=== PATIENT | male | born 1965 | race Caucasian/White ===

== ENCOUNTER 2016-10-17 07:16 | Day surgery (SDC) | payer BC ==
[~2016-10-17 07:16] MED LIST: Lactated Ringers 1,000 ML IV SCH; Lidocaine 1%/Sod Bicarbonate in NS 8.4% 1 ML Syringe PRN; Sodium Chloride 0.9% 10 ML Syringe FLUSH PRN
[2016-10-17] MEDS ORDERED: Propofol 200 MG/20 ML SDV ONE ×2 (07:28→08:31)
[2016-10-17] MEDS ORDERED: Midazolam 1 MG/ML 2 ML SDV ONE (07:28)
--- NOTE | 2016-10-17 07:40 | PCM.PREANE ---
Preanesthetic Assessment - Anesthesia/Transfusion/Family Hx Anesthesia History: Prior Anesthesia Without Reaction Family History of Anesthesia Reaction: No Transfusion History: Unknown Type of Transfusion Reactions: Reports: Unknown - Review of Systems General: No Symptoms Pulmonary: No Symptoms Cardiovascular: Other (HTN, ) Gastrointestinal: Other (occasional heartburn, ) Neurological: No Symptoms Other: Reports: None - Physical Assessment NPO Status Date: 10/16/16 NPO Status Time: 22:30 Pulse: 67 O2 Sat by Pulse Oximetry: 95 Respiratory Rate: 16 Blood Pressure: 143/75 Temperature: 36.4 C Height: 1.78 m Weight: 122.787 kg ASA Class: 2 Mental Status: Alert & Oriented x3 Airway Class: Mallampati = 2 Dentition: Reports: Normal Dentition Thyro-Mental Finger Breadths: 3 Mouth Opening Finger Breadths: 3 ROM/Head Extension: Full Lungs: Clear to Auscultation, Normal Respiratory Effort Cardiovascular: Regular Rate, Regular Rhythm - Allergies Allergies/Adverse Reactions: Allergies Allergy/AdvReac Type Severity Reaction Status Date / Time No Known Allergies Allergy Verified 10/16/16 16:43 - Blood Blood Available: No Product(s) Available: None - Anesthesia Plan Pre-Op Medication Ordered: None - Acknowledgements Anesthesia Type Planned: MAC Pt an Appropriate Candidate for the Planned Anesthesia: Yes Alternatives and Risks of Anesthesia Discussed w Pt/Guardian: Yes Pt/Guardian Understands and Agrees with Anesthesia Plan: Yes PreAnesthesia Questionnaire - Past Health History Medical/Surgical History: Denies Medical/Surgical History HEENT History: Reports: Impaired Vision, Other (See Below) Other HEENT History: wears glasses Cardiovascular History: Reports: Hypertension Respiratory History: Reports: None Genitourinary History: Reports: None [employer] History: Reports: None Musculoskeletal History: Reports: None Neurological History: Reports: None Psychiatric History: Reports: None Endocrine/Metabolic History: Reports: None Hematologic History: Reports: None Immunologic History: Reports: None Oncologic (Cancer) History: Reports: None Dermatologic History: Reports: Other (See Below) Other Dermatologic History: ingrown toenails - Past Surgical History Head Surgeries/Procedures: Reports: None Cardiovascular Surgical History: Reports: None Respiratory Surgical History: Reports: None GI Surgical History: Reports: Appendectomy Female Surgical History: Reports: None Male Surgical History: Reports: None Endocrine Surgical History: Reports: None Neurological Surgical History: Reports: None Musculoskeletal Surgical History: Reports: None Dermatological Surgical History: Reports: None - SUBSTANCE USE Smoking Status *Q: Never Smoker Second Hand Smoke Exposure: No Days Per Week of Alcohol Use: 0 Recreational Drug Use History: No - HOME MEDS Home Medications: Home Meds Ibuprofen 400 mg PO Q6H PRN #100 tablet 01/08/14 [Rx] Aspirin 81 mg PO DAILY 10/16/16 [History] Hydrochlorothiazide 25 mg PO DAILY 10/16/16 [History] Naproxen [Naprosyn] 500 mg PO BID PRN 10/16/16 [History] Polyethylene Glycol 3350 [MiraLAX] 1 dose PO DAILY PRN 10/16/16 [History] - CURRENT (IN HOUSE) MEDS Current Meds: Current Medications Lactated Ringer's (Ringers, Lactated) 1,000 mls @ 125 mls/hr IV ASDIRECTED PEDRO PABLO Stop: 10/17/16 23:00 Lidocaine/Sodium Bicarbonate (Buffered Lidocaine 1% In Ns 8.4%) 0.25 ml .XX ONETIME PRN PRN Reason: Prior to IV Start Stop: 10/17/16 18:00 Sodium Chloride (Saline Flush) 10 ml FLUSH ASDIRECTED PRN PRN Reason: Keep Vein Open Stop: 10/17/16 18:00 Discontinued Medications Midazolam HCl (Versed 1 Mg/Ml) Confirm Administered Dose 2 mg .ROUTE .STK-MED ONE Stop: 10/17/16 07:29 Propofol (Diprivan 20 Ml) Confirm Administered Dose 200 mg .ROUTE .STK-MED ONE Stop: 10/17/16 07:29
--- NOTE | 2016-10-17 07:55 | PCM.HP ---
H&P History of Present Illness - General Date of Service: 10/17/16 Admit Problem/Dx: Colon cancer screening Source of Information: Patient History Limitations: Reports: No Limitations - History of Present Illness Initial Comments - Free Text/Narative: 50 year old male here for colon cancer screening. He has had no bowel habit changes or blood in his stool. He has no family history of colon cancer. He has never had a colonoscopy. He can accomplish 4 METS of activity without chest pain or dyspnea. - Related Data Allergies/Adverse Reactions: Allergies Allergy/AdvReac Type Severity Reaction Status Date / Time No Known Allergies Allergy Verified 10/16/16 16:43 Home Medications: Home Meds Ibuprofen 400 mg PO Q6H PRN #100 tablet 01/08/14 [Rx] Aspirin 81 mg PO DAILY 10/16/16 [History] Hydrochlorothiazide 25 mg PO DAILY 10/16/16 [History] Naproxen [Naprosyn] 500 mg PO BID PRN 10/16/16 [History] Polyethylene Glycol 3350 [MiraLAX] 1 dose PO DAILY PRN 10/16/16 [History] Past Medical History - Past Health History Medical/Surgical History: Denies Medical/Surgical History HEENT History: Reports: Impaired Vision, Other (See Below) Other HEENT History: wears glasses Cardiovascular History: Reports: Hypertension Respiratory History: Reports: None Genitourinary History: Reports: None CERTIFIED 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 Musculoskeletal History: Reports: None Neurological History: Reports: None Psychiatric History: Reports: None Endocrine/Metabolic History: Reports: None Hematologic History: Reports: None Immunologic History: Reports: None Oncologic (Cancer) History: Reports: None Dermatologic History: Reports: Other (See Below) Other Dermatologic History: ingrown toenails - Past Surgical History Head Surgeries/Procedures: Reports: None Cardiovascular Surgical History: Reports: None Respiratory Surgical History: Reports: None GI Surgical History: Reports: Appendectomy Female Surgical History: Reports: None Male Surgical History: Reports: None Endocrine Surgical History: Reports: None Neurological Surgical History: Reports: None Musculoskeletal Surgical History: Reports: None Dermatological Surgical History: Reports: None Social & Family History - Tobacco Use Smoking Status *Q: Never Smoker Second Hand Smoke Exposure: No - Alcohol Use Days Per Week of Alcohol Use: 0 - Recreational Drug Use Recreational Drug Use: No H&P Review of Systems - Review of Systems: Review Of Systems: AVEL reveals no pertinent complaints other than HPI. Exam - Exam Exam: See Below - Vital Signs Vital Signs: Last Vital Signs Temp 36.4 C 10/17/16 07:40 Pulse 67 10/17/16 07:40 Resp 16 10/17/16 07:40 BP 143/75 H 10/17/16 07:40 Pulse Ox 95 10/17/16 07:40 Weight: 114.759 kg - Exam General: Alert, Oriented Lungs: Clear to Auscultation, Normal Respiratory Effort Cardiovascular: Regular Rate, Regular Rhythm GI/Abdominal Exam: Normal Bowel Sounds, Soft, Non-Tender *Q Meaningful Use (ADM) - VTE *Q VTE Criteria *Q: - Stroke *Q Stroke Criteria *Q: - AMI *Q AMI Criteria *Q: - Problem List (1) Colon cancer screening SNOMED Code(s): 413118458, [id number] ICD Code: Z12.11 - ENCOUNTER FOR SCREENING FOR MALIGNANT NEOPLASM OF COLON Status: Acute Current Visit: Yes Problem List Initiated/Reviewed/Updated: Yes Orders Last 24hrs: Active Orders 24 hr Category Date Time Status Communication Order [RC] ROUTINE Care 10/17/16 07:41 Active Cooling Warming Measures [RC] ASDIRECTED Care 10/17/16 07:41 Active Notify Provider [RC] ASDIRECTED Care 10/17/16 07:41 Active Peripheral IV Care [RC] . DIRECTED Care 10/17/16 00:01 Active Verify Patient Consent Obtain [RC] ASDIRECTED Care 10/17/16 00:01 Active Lactated Ringers [Ringers, Lactated] 1,000 ml Med 10/17/16 00:01 Active IV ASDIRECTED Lidocaine 1%/Sod Bicarbonate [Buffered Lidocaine 1% in Med 10/17/16 00:01 Active NS 8.4%] 0.25 ml .XX ONETIME PRN Sodium Chloride 0.9% [Saline Flush] Med 10/17/16 00:01 Active 10 ml FLUSH ASDIRECTED PRN Medication Administration Instruction [OM.PC] Routine Oth 10/17/16 00:01 Ordered Peripheral IV Insertion Adult [OM.PC] Routine Oth 10/17/16 00:01 Ordered Medication Orders Lactated Ringer's (Ringers, Lactated) 1,000 mls @ 125 mls/hr IV ASDIRECTED PEDRO PABLO Stop: 10/17/16 23:00 Last Admin: 10/17/16 07:40 Dose: 125 mls/hr Lidocaine/Sodium Bicarbonate (Buffered Lidocaine 1% In Ns 8.4%) 0.25 ml .XX ONETIME PRN PRN Reason: Prior to IV Start Stop: 10/17/16 18:00 Last Admin: 10/17/16 07:40 Dose: 0.25 ml Sodium Chloride (Saline Flush) 10 ml FLUSH ASDIRECTED PRN PRN Reason: Keep Vein Open Stop: 10/17/16 18:00 Assessment/Plan Comment:: Proceed with colonoscopy. Benefits/risks discussed including risk of perforation , bleeding, anesthesia concerns, etc.
--- NOTE | 2016-10-17 08:23 | PCM.OPNOTE ---
- General Post-Op/Procedure Note Date of Surgery/Procedure: 10/17/16 Operative Procedure(s): Colonoscopy with cold forceps Findings: Colon Polyps x 2 Pre Op Diagnosis: Age related colon cancer screening Post-Op Diagnosis: Colon polyps x 2 Anesthesia Technique: MAC Primary Surgeon: Kevin Valdes EBL in mLs: 5 Complications: None Condition: Good Free Text/Narrative:: After the patient gave verbal and written consent he was placed on blood pressure and pulse ox monitoring. He was given IV sedation which he tolerated well. The olympus colonoscope was inserted per rectum and advanced to the cecum without difficulty. The ileocecal valve and appendiceal orfice were imaged documenting cecal intubation. The terminal ileum was intubated and was normal to appearance. The colonoscope was slowly withdrawn. The views were excellent and the prep was excellent. Two small polyps were noted; 3 mm polyp in the sigmoid and 2 mm polyp in the rectum. These were removed by cold forceps biopsy. There was good hemostasis. The scope was retroflexed in the rectum and removed. Patient tolerated well. There were no complications.
--- NOTE | 2016-10-17 08:24 | PCM48HPAN ---
Post Anesthesia Note - EVALUATION WITHIN 48HRS OF ANESTHETIC Vital Signs in Normal Range: Yes Patient Participated in Evaluation: Yes Respiratory Function Stable: Yes Airway Patent: Yes Cardiovascular Function Stable: Yes Hydration Status Stable: Yes Pain Control Satisfactory: Yes Nausea and Vomiting Control Satisfactory: Yes Mental Status Recovered: Yes
[2016-10-17 08:27] VITALS: BP 117/63
== END 2016-10-17 09:10 | disposition home or self-care (01) ==
LOC: JD.SDS 07:16
PROVIDERS: ATTEND Family Medicine
DX: Z12.11 Encounter for screening for malignant neoplasm of colon (principal); K63.5 Polyp of colon; I10 Essential (primary) hypertension; Z79.82 Long term (current) use of aspirin; Z79.899 Other long term (current) drug therapy; Z90.49 Acquired absence of other specified parts of digestive tract; Z68.41 Body mass index [BMI] 40.0-44.9, adult
CPT/HCPCS: 45380; 88305; J2250; J7120; 00810; J2704

== ENCOUNTER 2020-02-03 14:32 | Emergency (ER) | payer BC ==
[2020-02-03 14:51] VITALS: BP 159/90; PULSE 83
--- NOTE | 2020-02-03 14:56 | EDM.PDOC ---
ED HPI GENERAL MEDICAL PROBLEM - General Chief Complaint: Respiratory Problem Stated Complaint: COVID + Time Seen by Provider: 02/03/20 14:45 Source of Information: Reports: Patient History Limitations: Reports: No Limitations - History of Present Illness INITIAL COMMENTS - FREE TEXT/NARRATIVE: 54-year-old male presents to the ED after being seen at the walk-in clinic at [facility] today. His O2 sats were listed as 83% and he was sent to the ED for further evaluation. Patient states he first became ill with fever chills headache around 22 January. Diagnosed with COVID-19 positive on January 27. This would suggest that he is on day 10 of illness. O2 sats in our ED were 73% and improved to 94% on 4 L/min by nasal cannula. He still has marked nasal congestion and loss of's state smell. Paroxysmal minimally productive cough. Mild diarrhea which is better lately. No vomiting fever and chills seem to have abated as well. Chief complaint is shortness of breath on minimal exertion and even at rest. - Related Data Allergies Allergy/AdvReac Type Severity Reaction Status Date / Time No Known Allergies Allergy Verified 02/03/20 14:44 Home Meds: Home Meds Ibuprofen 400 mg PO Q6H PRN #100 tablet 01/08/14 [Rx] Aspirin 81 mg PO DAILY 10/16/16 [History] Hydrochlorothiazide 25 mg PO DAILY 10/16/16 [History] Naproxen [Naprosyn] 500 mg PO BID PRN 10/16/16 [History] Polyethylene Glycol 3350 [MiraLAX] 1 dose PO DAILY PRN 10/16/16 [History] Past Medical History - Past Health History Medical/Surgical History: Denies Medical/Surgical History HEENT History: Reports: Impaired Vision, Other (See Below) Other HEENT History: wears glasses Cardiovascular History: Reports: Hypertension Respiratory History: Reports: None Genitourinary History: Reports: None [employer] History: Reports: None Musculoskeletal History: Reports: None Neurological History: Reports: None Psychiatric History: Reports: None Endocrine/Metabolic History: Reports: None Hematologic History: Reports: None Immunologic History: Reports: None Oncologic (Cancer) History: Reports: None Dermatologic History: Reports: Other (See Below) Other Dermatologic History: ingrown toenails - Past Surgical History Head Surgeries/Procedures: Reports: None Cardiovascular Surgical History: Reports: None Respiratory Surgical History: Reports: None GI Surgical History: Reports: Appendectomy Female Surgical History: Reports: None Male Surgical History: Reports: None Endocrine Surgical History: Reports: None Neurological Surgical History: Reports: None Musculoskeletal Surgical History: Reports: None Dermatological Surgical History: Reports: None Social & Family History - Tobacco Use Tobacco Use Status *Q: Never Tobacco User - Caffeine Use Caffeine Use: Reports: Soda - Recreational Drug Use Recreational Drug Use: No - Living Situation & Occupation Living situation: Reports: Occupation: Employed ED ROS GENERAL - Review of Systems Review Of Systems: See Below Constitutional: Reports: Fever, Chills, Malaise, Weakness, Fatigue (Towards the beginning of the illness.), Decreased Appetite, Weight Loss HEENT: Reports: No Symptoms, Glasses Respiratory: Reports: Shortness of Breath, Cough. Denies: Wheezing, Pleuritic Chest Pain, Hemoptysis (Mostly white sputum.), Other Cardiovascular: Reports: Blood Pressure Problem, Dyspnea on Exertion. Denies: Chest Pain, Claudication, Edema, Lightheadedness, Orthopnea Endocrine: Reports: Fatigue GI/Abdominal: Reports: Diarrhea (Diarrhea with initial onset of illness.), Decreased Appetite, Nausea : Reports: No Symptoms Musculoskeletal: Reports: Muscle Pain (Neurolyse myalgia particularly neck muscles low back and) Skin: Reports: No Symptoms ( hips.) Neurological: Reports: Dizziness, Headache, Difficulty Walking, Weakness. Denies: Confusion, Syncope Psychiatric: Reports: No Symptoms Hematologic/Lymphatic: Reports: No Symptoms Immunologic: Reports: No Symptoms ED EXAM, GENERAL - Physical Exam Exam: See Below Exam Limited By: No Limitations General Appearance: Alert, WD/WN, No Apparent Distress, Other (He does not feel warm to palpation. Nurses record temperature 36.1 degrees heart rate was 83 and sinus respiratory is 26 with O2 sats of only 73% on room air BP is 159/90. He was placed on 4 L of oxygen by nasal cannula and achieved O2 sats of 94%. He was subsequently weaned down to 2 L/min to maintain O2 sats of 95%) Eye Exam: Bilateral Eye: Normal Fundi (There is no scleral icterus or blepharal pallor.), PERRL Throat/Mouth: Other Head: Atraumatic, Normocephalic, Other (Tongue is mildly coated and dry.) Neck: Normal Inspection, Supple ( No overt signs of head or facial trauma), Non-Tender, Full Range of Motion. No: Carotid Bruit, Lymphadenopathy (L) Respiratory/Chest: No Respiratory Distress, Lungs Clear, Normal Breath Sounds, No Accessory Muscle Use, Chest Non-Tender Cardiovascular: Normal Peripheral Pulses, Regular Rate, Rhythm, No Edema, No Gallop, No Murmur, No Rub Peripheral Pulses: 2+: Carotid (L), Carotid (R), Posterior Tibial (L), Posterior Tibial (R), Dorsalis Pedis (L), Dorsalis Pedis (R) GI/Abdominal: Normal Bowel Sounds, Soft, Non-Tender, No Organomegaly, No Distention, No Abnormal Bruit, No Mass, Pelvis Stable. No: Guarding, Rigid, Rebound Back Exam: Normal Inspection, Full Range of Motion. No: CVA Tenderness (L), CVA Tenderness (R) Extremities: Normal Inspection, Normal Range of Motion, Non-Tender, No Pedal Edema Neurological: Alert, Oriented, CN II-XII Intact, Normal Cognition Psychiatric: Normal Affect, Normal Mood Skin Exam: Warm, Dry, Intact, Normal Color, No Rash #1 Interpretation EKG Date: 02/03/20 Time: 14:57 Rhythm: NSR Rate (Beats/Min): 75 [place]: LAD-Left [place] Deviation (-24 degrees) P-Wave: Enlarged (Sitter left atrial hypertrophy) QRS: Other (Early R wave transition consider septal hypertrophy pattern. Tall R wave in lead I is suggestive of left ventricular appear to be pattern.) QT: Prolonged EKG Interpretation Comments: Abnormal ECG Course - Vital Signs Last Recorded V/S: Last Vital Signs Temp 36.1 C 02/03/20 14:46 Pulse 83 02/03/20 14:46 Resp 26 H 02/03/20 14:46 BP 159/90 H 02/03/20 14:46 Pulse Ox 73 L 02/03/20 14:46 - Orders/Labs/Meds Orders: Active Orders 24 hr Category Date Time Status EKG Documentation Completion [RC] STAT Care 02/03/20 14:53 Active Oxygen Therapy [RC] ASDIRECTED Care 02/03/20 14:55 Active Chest 1V Frontal [CR] Stat Exams 02/03/20 14:54 Taken URINALYSIS W/MICROSCOPIC [UA W/MICROSCOPIC] [URIN] Stat Lab 02/03/20 14:54 Ordered Dextrose 5%-Lactated Ringers 1,000 ml Med 02/03/20 15:00 Active IV ASDIRECTED Potassium Chloride [KCl 10 MEQ in Water 100 ML] 10 meq Med 02/03/20 16:30 Active Premix Bag 1 bag IV Q1H Medication Orders Dextrose/Lactated Ringer's (Dextrose 5%-Lactated Ringers) 1,000 mls @ 250 ml s/hr IV ASDIRECTED PEDRO PABLO Last Admin: 02/03/20 15:06 Dose: 250 mls/hr Documented by: LEILA Potassium Chloride 10 meq/ (Premix) 100 mls @ 100 mls/hr IV Q1H PEDRO PABLO Stop: 02/03/20 21:29 Last Admin: 02/03/20 18:42 Dose: Not Given Documented by: Admin: 02/03/20 18:41 Dose: Not Given Documented by: Admin: 02/03/20 17:17 Dose: 100 mls/hr Documented by: AN Labs: Laboratory Tests 02/03/20 02/03/20 02/03/20 Range/Units 15:10 15:10 15:10 WBC 8.55 (4.23-9.07) K/mm3 RBC 4.75 (4.63-6.08) M/mm3 Hgb 14.0 (13.7-17.5) gm/dl Hct 42.1 (40.1-51.0) % MCV 88.6 (79.0-92.2) fl MCH 29.5 (25.7-32.2) pg MCHC 33.3 (32.2-35.5) g/dl RDW Std Deviation 42.1 (35.1-43.9) fL Plt Count 468 H D (163-337) K/mm3 MPV 8.1 L (9.4-12.3) fl Neut % (Auto) 76.8 H (34.0-67.9) % Lymph % (Auto) 9.7 L (21.8-53.1) % Phillips % (Auto) 9.7 (5.3-12.2) % Eos % (Auto) 0.8 (0.8-7.0) Baso % (Auto) 0.5 (0.1-1.2) % Neut # (Auto) 6.57 H (1.78-5.38) K/mm3 Lymph # (Auto) 0.83 L (1.32-3.57) K/mm3 Phillips # (Auto) 0.83 H (0.30-0.82) K/mm3 Eos # (Auto) 0.07 (0.04-0.54) K/mm3 Baso # (Auto) 0.04 (0.01-0.08) K/mm3 Manual Slide Review Abnormal smear PT 10.6 (9.7-12.0) SECONDS INR 0.99 APTT 21.3 L (21.7-31.4) SECONDS D-Dimer, Quantitative 0.47 (0.19-0.50) mg/L Sodium 135 L (136-145) mEq/L Potassium 2.8 L (3.5-5.1) mEq/L Chloride 93 L (98-107) mEq/L Carbon Dioxide 32 (21-32) mEq/L Anion Gap 12.8 (5-15) BUN 11 (7-18) mg/dL Creatinine 1.2 (0.7-1.3) mg/dL Est Cr Clr Drug Dosing 72.66 mL/min Estimated GFR (MDRD) > 60 (>60) mL/min BUN/Creatinine Ratio 9.2 L (14-18) Glucose 103 (74-106) mg/dL Lactic Acid (0.4-2.0) mmol/L Calcium 9.5 (8.5-10.1) mg/dL Magnesium 2.1 (1.8-2.4) mg/dl Ferritin (26-388) ng/ml Total Bilirubin 0.8 (0.2-1.0) mg/dL AST 44 H (15-37) U/L ALT 49 (16-63) U/L Alkaline Phosphatase 61 (46-116) U/L Lactate Dehydrogenase 383 H (85-227) U/L Troponin I < 0.017 (0.00-0.056) ng/mL C-Reactive Protein 8.6 H* (<1.0) mg/dL NT-Pro-B Natriuret Pep (0-125) pg/mL Total Protein 7.9 (6.4-8.2) g/dl Albumin 3.0 L (3.4-5.0) g/dl Globulin 4.9 gm/dL Albumin/Globulin Ratio 0.6 L (1-2) 02/03/20 02/03/20 02/03/20 Range/Units 15:10 15:10 15:10 WBC (4.23-9.07) K/mm3 RBC (4.63-6.08) M/mm3 Hgb (13.7-17.5) gm/dl Hct (40.1-51.0) % MCV (79.0-92.2) fl MCH (25.7-32.2) pg MCHC (32.2-35.5) g/dl RDW Std Deviation (35.1-43.9) fL Plt Count (163-337) K/mm3 MPV (9.4-12.3) fl Neut % (Auto) (34.0-67.9) % Lymph % (Auto) (21.8-53.1) % Phillips % (Auto) (5.3-12.2) % Eos % (Auto) (0.8-7.0) Baso % (Auto) (0.1-1.2) % Neut # (Auto) (1.78-5.38) K/mm3 Lymph # (Auto) (1.32-3.57) K/mm3 Phillips # (Auto) (0.30-0.82) K/mm3 Eos # (Auto) (0.04-0.54) K/mm3 Baso # (Auto) (0.01-0.08) K/mm3 Manual Slide Review PT (9.7-12.0) SECONDS INR APTT (21.7-31.4) SECONDS D-Dimer, Quantitative (0.19-0.50) mg/L Sodium (136-145) mEq/L Potassium (3.5-5.1) mEq/L Chloride (98-107) mEq/L Carbon Dioxide (21-32) mEq/L Anion Gap (5-15) BUN (7-18) mg/dL Creatinine (0.7-1.3) mg/dL Est Cr Clr Drug Dosing mL/min Estimated GFR (MDRD) (>60) mL/min BUN/Creatinine Ratio (14-18) Glucose (74-106) mg/dL Lactic Acid 1.0 (0.4-2.0) mmol/L Calcium (8.5-10.1) mg/dL Magnesium (1.8-2.4) mg/dl Ferritin 1739 H (26-388) ng/ml Total Bilirubin (0.2-1.0) mg/dL AST (15-37) U/L ALT (16-63) U/L Alkaline Phosphatase (46-116) U/L Lactate Dehydrogenase (85-227) U/L Troponin I (0.00-0.056) ng/mL C-Reactive Protein (<1.0) mg/dL NT-Pro-B Natriuret Pep 77 (0-125) pg/mL Total Protein (6.4-8.2) g/dl Albumin (3.4-5.0) g/dl Globulin gm/dL Albumin/Globulin Ratio (1-2) Meds: Medications Generic Name Dose Route Start Last Admin Trade Name Freq PRN Reason Stop Dose Admin Dextrose/Lactated Ringer's 1,000 mls @ 250 mls/hr 02/03/20 15:00 02/03/20 15:06 Dextrose 5%-Lactated Ringers IV 250 mls/hr ASDIRECTED PEDRO PABLO Administration Potassium Chloride 10 meq/ 100 mls @ 100 mls/hr 02/03/20 16:30 02/03/20 18:42 Premix IV 02/03/20 21:29 Not Given Q1H PEDRO PABLO - Radiology Interpretation Free Text/Narrative:: 54-year-old male presents to the ED at the request of [place] walk-in clinic when he presented there for evaluation of dyspnea. His O2 sats initially reportedly 83% and he was sent probably to the ED. Diagnosed with COVID-19 positivity on January 27. He believes his symptoms started January 22 [address] him at day 10 -11 of illness. O2 sats here were as low as 73% and initially was placed on 4 L by nasal cannula subsequently we were able to wean him down to 2 L/min to maintain O2 sats of 95% at rest. Blood pressure is 04/20/1975 with heart rate of 72 and sinus. Plan routine labs will be collected including a D-dimer. A chest x-ray would be repeated since they did not send one along with him. - Re-Assessments/Exams Free Text/Narrative Re-Assessment/Exam: 02/03/20 15:56 chest x-ray done portably reveals diffuse patchy airspace opacities noted throughout the lungs bilaterally. Pleural space is unremarkable no pleural effusion no pneumothorax. The heart demonstrates mild diffuse enlargement. Findings consistent with the edema viral or atypical pneumonia. Patient is known to be Covid positive. 02/03/20 15:58 White count is 8.55. Differential shows 76.8% neutrophils. Hemoglobin is 14.0 with hematocrit of 42.1. MCV is 88.6. Platelet count is elevated at 468,000. PT is 10.6 with an INR of 0.99. D-dimer is 0.47. Lactic acid 1. 02/03/20 16:22 Chemistry shows a sodium of 135 and a potassium low at 2.8. Chloride 93 with a bicarb of 32. Anion gap is 12.8. BUN is 11 with a creatinine of 1.2. GFR greater than 60. Glucose 103 with a lactic acid of 1.0. Calcium is 9.5 with a magnesium of 2.1. Serum ferritin is elevated at 1739. Total bilirubin is 0.8 AST slightly elevated at 44 and ALT is normal at 49 alk phosphatase is 61 LDH is elevated at 383 troponin I is 0.017. C-reactive protein elevated at 8.6. BNP is 77 with a total protein of 7.9 and albumin fraction of 3.0. She is going to need placement in a hospital setting due to hypoxemia and need for oxygen although we have been able to wean him down to 2 L/min by nasal cannula. [facility] in [place] is currently seeing if they can move things around to get a bed available. 02/03/20 17:38 the patient need to stay on oxygen it is felt that he would be better served in the hospital. Therefore he will be sent to [facility] for admission to the Covid unit. I did speak with Dr. Orantes-- hospitalist at that hospital and he has accepted care. Patient be transported by [place] ambulance at this time Departure - Departure Time of Disposition: 19:31 Disposition: DC/Tfer to Acute Hospital 02 Condition: Fair Clinical Impression: COVID-19 determined by clinical diagnostic criteria, Hypoxia, Hypokalemia due to inadequate potassium intake - Discharge Information *PRESCRIPTION DRUG MONITORING PROGRAM REVIEWED*: Not Applicable *COPY OF PRESCRIPTION DRUG MONITORING REPORT IN PATIENT [place]: Not Applicable Instructions: COVID-19 Frequently Asked Questions, COVID-19: How to Protect Yourself and Others - CDC Referrals: Maribel Ross PA-C [Primary Care Provider] - Forms: ED Department Discharge Additional Instructions: Patient transferred to [facility] in [facility] since there is no beds available in [place]. Patient clinically is on day 10 or 11 of his COVID-19 illness. Presented to the ER with severe hypoxia with O2 sats recorded at 73%. Doing well on 2 to 3 L of oxygen at this time satting at 94 to 95%. At present there is no ambulance availability from any of the surrounding [facility] or [place]. It would take another 6 to 8 hours to provide transport of this patient to [place]. He has elected to travel to [place] per private vehicle with his driving. We have been able to obtain an oxygen source through [employer] that he can use continuously in route via nasal prongs at 2 L/min. Sepsis Event Note (ED) - Evaluation Sepsis Screening Result: No Definite Risk - Focused Exam Vital Signs: Vital Signs Temp Pulse Resp BP Pulse Ox 02/03/20 14:46 36.1 C 83 26 H 159/90 H 73 L - My Orders Last 24 Hours: My Active Orders 02/03/20 14:53 EKG Documentation Completion [RC] STAT 02/03/20 14:54 Chest 1V Frontal [CR] Stat URINALYSIS W/MICROSCOPIC [UA W/MICROSCOPIC] [URIN] Stat 02/03/20 14:55 Oxygen Therapy [RC] ASDIRECTED 02/03/20 15:00 Dextrose 5%-Lactated Ringers 1,000 ml IV ASDIRECTED 02/03/20 16:30 Potassium Chloride [KCl 10 MEQ in Water 100 ML] 10 meq Premix Bag 1 bag IV Q1H - Assessment/Plan Last 24 Hours: My Active Orders 02/03/20 14:53 EKG Documentation Completion [RC] STAT 02/03/20 14:54 Chest 1V Frontal [CR] Stat URINALYSIS W/MICROSCOPIC [UA W/MICROSCOPIC] [URIN] Stat 02/03/20 14:55 Oxygen Therapy [RC] ASDIRECTED 02/03/20 15:00 Dextrose 5%-Lactated Ringers 1,000 ml IV ASDIRECTED 02/03/20 16:30 Potassium Chloride [KCl 10 MEQ in Water 100 ML] 10 meq Premix Bag 1 bag IV Q1H
[2020-02-03] MEDS ORDERED: Dextrose 5%-Lactated Ringers 1,000 ML IV SCH (15:00)
[2020-02-03] MEDS: Potassium Chloride 10 MEQ in Premix Bag 1 BAG IV SCH ×3 (17:17→18:42)
--- NOTE | 2020-02-04 08:36 | CR ---
PROCEDURE INFORMATION: Exam: XR Chest, 1 View Exam date and time: 02/03/2020 2:43 PM Age: 54 years old Clinical indication: Other: Hypoxia known covid TECHNIQUE: Imaging protocol: XR of the chest Views: 1 view. COMPARISON: No relevant prior studies available. FINDINGS: Lungs: Diffuse patchy airspace opacities noted throughout the lungs bilaterally. Pleural space: Unremarkable. No pleural effusion. No pneumothorax. Heart/Mediastinum: The heart demonstrates mild diffuse enlargement. Bones/joints: Unremarkable. IMPRESSION: Diffuse patchy airspace opacities noted throughout the lungs bilaterally. Findings consistent with edema, viral or atypical pneumonia. Other etiologies are not excluded. Thank you for allowing us to participate in the care of your patient. Dictated and Authenticated by: Jonatan Rubi DO 02/03/2020 4:44 PM Central Time ([place] & [place]) [facility]
== END 2020-02-03 19:35 ==
LOC: SUPCPDRO 14:32 → JD.ED 14:32
DX: U07.1 COVID-19 (principal); R09.02 Hypoxemia; E87.6 Hypokalemia; I10 Essential (primary) hypertension; Z79.82 Long term (current) use of aspirin; Z79.899 Other long term (current) drug therapy
CPT/HCPCS: 36415; 71045; 80053; 82728; 83605; 83615; 83735; 83880; 84484; 85025; 85379; 85610; 85730; 86140; 93005; 96365; 99285; J3480; J7121; 93010; 99284